=== PATIENT | female | born 1960 | race Caucasian/White ===

== ENCOUNTER 2020-05-19 14:10 | Outpatient (CLI) | payer OTHER, SELFPAY | END 2020-05-19 14:11 | disposition home or self-care (01) | LOC: ANHBWCAUD 14:12 | PROVIDERS: PCP Family Medicine; Visit Provider Family Medicine | DX: H91.93 Unspecified hearing loss, bilateral (principal); H90.3 Sensorineural hearing loss, bilateral | CPT/HCPCS: 92557; 92567 ==

== ENCOUNTER 2020-08-01 08:00 | Outpatient (RCR) | payer OTHER, SELFPAY | END 2020-08-26 23:59 | disposition home or self-care (01) | LOC: ANHBWCAUD 08:00 | PROVIDERS: PCP Family Medicine; Visit Provider Family Medicine | DX: Z46.1 Encounter for fitting and adjustment of hearing aid (principal) | CPT/HCPCS: 99199; V5221; V5240; V5264 ==

== ENCOUNTER 2021-01-08 08:30 | Outpatient (RCR) | payer OTHER, SELFPAY | END 2021-01-26 23:59 | disposition home or self-care (01) | LOC: ANHBWCAUD 08:30 | PROVIDERS: PCP Family Medicine; Visit Provider Family Medicine | DX: Z46.1 Encounter for fitting and adjustment of hearing aid (principal) | CPT/HCPCS: 99199 ==

== ENCOUNTER 2021-04-22 11:12 | Outpatient (RCR) | payer OTHER, SELFPAY | END 2021-07-21 23:59 | disposition home or self-care (01) | LOC: ANHAUDASC 11:12 | PROVIDERS: PCP Family Medicine | DX: Z46.1 Encounter for fitting and adjustment of hearing aid (principal) | CPT/HCPCS: 99199 ==

== ENCOUNTER 2022-04-06 15:00 | Outpatient (RCR) | payer OTHER, SELFPAY | END 2022-04-26 23:59 | disposition home or self-care (01) | LOC: ANHBWCAUD 15:00 | PROVIDERS: PCP Family Medicine | DX: Z46.1 Encounter for fitting and adjustment of hearing aid (principal) | CPT/HCPCS: 99199; V5014; V5264 ==

== ENCOUNTER 2022-04-20 10:59 | Outpatient (CLI) | payer OTHER, SELFPAY | END 2022-04-20 11:00 | disposition home or self-care (01) | LOC: ANHBWCAUD 11:00 | PROVIDERS: PCP Family Medicine; Visit Provider Physician Assistant | DX: H90.3 Sensorineural hearing loss, bilateral (principal) | CPT/HCPCS: 92557; 92567 ==

== ENCOUNTER 2022-08-04 18:41 | Emergency (ER) | payer OTHER, SELFPAY ==
[2022-08-04 19:49] VITALS: BP 162/56; PULSE 67; RESP 18; TEMP 37; O2SAT 97
--- NOTE | 2022-08-04 21:38 | ED.SKABFB ---
HPI - Skin/Abscess/Foreign Bdy General Chief complaint: Skin/Abscess/Foreign Body Stated complaint: lump om arm Time Seen by Provider: 08/04/22 21:19 History of Present Illness HPI narrative: This is a 61-year-old female, with past medical history of hypertension, presenting to the emergency department complaining of a mass growing in the left forearm for the past 3 weeks. She denies previous mass in the same area, fevers, chills but complains of 3 out of 10 dull pain. She denies weakness or numbness in the hand. Related Data Allergies Allergy/AdvReac Type Severity Reaction Status Date / Time No Known Allergies Allergy Verified 08/04/22 20:57 Review of Systems Review of Systems: CONSTITUTIONAL: Denies fever, chills, or sweats. CARDIOVASCULAR: Denies chest pain, palpitations, or edema. RESPIRATORY: Denies cough or dyspnea. GASTROINTESTINAL: Denies abdominal pain, nausea, vomiting, or diarrhea. GENITOURINARY: Denies dysuria or hematuria. SKIN: Denies rash or itching. MUSCULOSKELETAL: Mild left forearm pain, Denies back pain, joint pain, or myalgia. NEUROLOGIC: Denies headache, numbness, dizziness, or weakness. PSYCHIATRIC: Denies anxiety or depression. [facility] Past Medical History Medical History (Updated 08/04/22 @ 21:41 by Carlos Herrera MD) Hypertension Social History Social History (Updated 08/04/22 @ 21:42 by Carlos Herrera MD) Smoking status: Never smoker Alcohol intake: never Substance use: never Exam Narrative: GENERAL: Well-appearing, well-nourished, and in no acute distress. HEAD: Normocephalic, atraumatic. EYES: PERRLA and EOMI. NECK: Supple. No adenopathy or masses. No carotid bruits or JVD CHEST: Clear to auscultation. No respiratory distress. No wheezes rales or rhonchi HEART: Regular rate and rhythm. No murmur heard. Normal peripheral pulses. ABDOMEN: Soft, nontender, nondistended, normal active bowel sounds. EXTREMITIES: Approximate 2 x 2 centimeter mobile, nontender mass is noted in the left forearm, just distal to the antecubital space without any erythema, induration or fluctuance; normal range of motion of all extremities. No edema. SKIN: Mask as noted above; skin otherwise warm, dry, no rash. NEURO: No focal deficits. Alert and oriented x3. PSYCH: Normal mood and affect. Course Course Emergency Course: 21:40 - Bedside ultrasound performed by me is not concerning for abscess or other fluid collection. Exam is consistent with a lipoma. Discussed recommendations including follow-up with primary care for further evaluation and potential surgical intervention. Discussed return emergency precautions including signs/symptoms of cellulitis, abscess and neurovascular compromise of the hand and arm. The patient voiced understanding and is comfortable with the plan. All questions answered to her satisfaction. Vital Signs Vital signs: Vital Signs Temperature 98.6 F 08/04/22 19:49 Pulse Rate 67 08/04/22 19:49 Respiratory Rate 18 08/04/22 19:49 Blood Pressure 162/56 H 08/04/22 19:49 Pulse Oximetry 97 08/04/22 19:49 Oxygen Delivery Room Air 08/04/22 19:49 Temperature 98.6 F 08/04/22 19:49 Pulse Rate 67 08/04/22 19:49 Respiratory Rate 18 08/04/22 19:49 Blood Pressure 162/56 H 08/04/22 19:49 Pulse Oximetry 97 08/04/22 19:49 Oxygen Delivery Room Air 08/04/22 19:49 MDM - Skin/Abscess/Foreign Bdy MDM Narrative Medical decision making narrative: Plan: Exam, bedside ultrasound, reassess Differential Diagnosis Differential diagnosis: Likely other (Lipoma, abscess, other) Discharge Plan Discharge Clinical Impression: Lipoma of left forearm Patient Disposition: Home, Self-Care Condition: Stable Instructions: Antibiotic Form, Lipoma (ED) Additional Instructions: You were seen in the emergency department. Your exam is consistent with a lipoma. I recommend following up with your primary care doctor for further evaluation and d
[2022-08-04 22:02] VITALS: BP 156/84; PULSE 64; RESP 16; O2SAT 93
== END 2022-08-04 22:10 | disposition home or self-care (01) ==
LOC: ANHED 21:47
PROVIDERS: Emergency Provider Preventive Medicine Aerospace Medicine; PCP Family Medicine
DX: D17.22 Benign lipomatous neoplasm of skin and subcutaneous tissue of left arm (principal); I10 Essential (primary) hypertension
CPT/HCPCS: 99281

== ENCOUNTER 2022-08-24 14:50 | Outpatient (CLI) | payer SELFPAY | END 2022-08-24 14:51 | disposition home or self-care (01) | PROVIDERS: PCP Family Medicine; Visit Provider Physician Assistant | DX: H91.90 Unspecified hearing loss, unspecified ear (principal) | CPT/HCPCS: 99199 ==

== ENCOUNTER 2022-12-07 08:15 | Outpatient (RCR) | payer OTHER, SELFPAY | END 2023-03-07 23:59 | disposition home or self-care (01) | LOC: ANHBWCAUD 08:15 | PROVIDERS: PCP Family Medicine | DX: Z46.1 Encounter for fitting and adjustment of hearing aid (principal) | CPT/HCPCS: 92593 ==

== ENCOUNTER 2023-09-27 08:30 | Outpatient (RCR) | payer OTHER, SELFPAY | END 2023-11-14 23:59 | disposition home or self-care (01) | LOC: ANHBWCAUD 08:30 | PROVIDERS: PCP Family Medicine; Visit Provider Family Medicine | DX: Z46.1 Encounter for fitting and adjustment of hearing aid (principal) | CPT/HCPCS: 92593; 99199 ==